=== PATIENT | female | born 1975 | race African-American/Black ===

== ENCOUNTER 2017-05-30 01:43 | Emergency (ER) | payer MEDICAID ==
[~2017-05-30] VITALS: Ht 167.6 cm; Wt 136.0 kg
[~2017-05-30 01:43] MED LIST: ABIL5 PO; AMLO10TA80 PO; CHLO25TA27 PO; GABA-529 PO; METO25TA6 PO; TOPI50TA24 PO; TRAZODONE
[2017-05-30] MEDS ORDERED: AMLODIPINE 10MG TABLET PO ONE (06:15)
[2017-05-30] MEDS ORDERED: FAMOTIDINE 20MG TABLET PO ONE (07:00)
[2017-05-30 07:28] LABS: BASOPHILS % 0.8 % (0.0-2.0); EOSINOPHILS % 1.8 % (0.0-5.0); HEMATOCRIT. 32.9 % (36.0-48.0); HEMOGLOBIN. 10.8 g/dL (12.0-16.0); LYMPHOCYTES % 49.7 % (20.0-50.0); MEAN CORPUSCULAR HEMOGLOBIN 25.2 pg (28.0-32.0); MEAN CORPUSCULAR VOLUME 76.4 fL (81.0-99.0); MEAN PLATELET VOLUME 7.8 fl (7.4-10.4); MONOCYTES % 6.9 % (2.0-8.0); NEUTROPHILS % 40.8 % (40.0-76.0); PLATELET 192 x1000/uL (130-400)
[2017-05-30 07:29] LABS: CLARITY URINE CLOUDY (CLEAR); COLOR URINE YELLOW (YELLOW); KETONES URINE NEGATIVE (NEGATIVE); LEUKOCYTE ESTERASE URINE NEGATIVE (NEGATIVE); NITRITE URINE NEGATIVE (NEGATIVE); OCCULT BLOOD URINE NEGATIVE (NEGATIVE); PH URINE 5.5 (4.5-8.0); PROTEIN URINE TRACE (NEGATIVE); SPECIFIC GRAVITY URINE 1.027 (1.005-1.030); UROBILINOGEN URINE 0.2 E.U./dL (0.2-1.0)
[2017-05-30] MEDS ORDERED: CLONIDINE 0.1MG TABLET PO ONE (07:30)
[2017-05-30 07:36] LABS: PROTHROMBIN TIME 10.4 sec (9.4-11.6)
[2017-05-30 07:41] LABS: CHLORIDE 105 mEq/L (98-107)
[2017-05-30 10:42] VITALS: BP 171/91
== END 2017-05-30 10:45 | disposition home or self-care (01) ==
LOC: ER 01:43
DX: N39.0 Urinary tract infection, site not specified (principal); I10 Essential (primary) hypertension; F17.200 Nicotine dependence, unspecified, uncomplicated
CPT/HCPCS: 36415; 80053; 81003; 81025; 83690; 85025; 85610; 99284; Z7610

== ENCOUNTER 2017-12-05 14:57 | Emergency (ER) | payer MEDICAID ==
[~2017-12-05] VITALS: Ht 172.7 cm; Wt 118.0 kg
[2017-12-05] MEDS ORDERED: SODIUM CHLORIDE 0.9% 1,000 ML IV ONE (15:19)
[2017-12-05] MEDS ORDERED: KETOROLAC 30MG/ML VIAL IV STA (15:19)
[2017-12-05] MEDS ORDERED: ONDANSETRON HCL 4MG/2ML VIAL IV STA (15:19)
[2017-12-05 17:26] LABS: BASOPHILS % 0.6 % (0.0-2.0); EOSINOPHILS % 1.7 % (0.0-5.0); HEMATOCRIT. 33.8 % (36.0-48.0); HEMOGLOBIN. 11.1 g/dL (12.0-16.0); LYMPHOCYTES % 49.7 % (20.0-50.0); MEAN CORPUSCULAR HEMOGLOBIN 25.6 pg (28.0-32.0); MEAN CORPUSCULAR VOLUME 77.8 fL (81.0-99.0); MEAN PLATELET VOLUME 7.9 fl (7.4-10.4); MONOCYTES % 8.5 % (2.0-8.0); NEUTROPHILS % 39.5 % (40.0-76.0); PLATELET 194 x1000/uL (130-400); RED BLOOD CELL COUNT 4.35 mill/uL (4.2-5.4); RED CELL DISTRIBUTION WIDTH 16.6 % (11.6-14.6)
[2017-12-05 17:34] LABS: PROTHROMBIN TIME 9.9 sec (9.1-11.1)
[2017-12-05 17:46] LABS: HCG SCREEN NEGATIVE
[2017-12-05 17:51] LABS: CHLORIDE 111 mEq/L (98-107)
[2017-12-05] MEDS ORDERED: HYDRALAZINE HCL 50MG TABLET PO ONE (18:00)
[2017-12-05] MEDS ORDERED: CLONIDINE 0.2MG TABLET PO ONE (19:45)
[2017-12-05 22:16] LABS: CLARITY URINE CLOUDY (CLEAR); COLOR URINE YELLOW (YELLOW); KETONES URINE NEGATIVE (NEGATIVE); LEUKOCYTE ESTERASE URINE 1+ (NEGATIVE); NITRITE URINE NEGATIVE (NEGATIVE); OCCULT BLOOD URINE NEGATIVE (NEGATIVE); PH URINE 5.5 (4.5-8.0); PROTEIN URINE 1+ (NEGATIVE); SPECIFIC GRAVITY URINE 1.022 (1.005-1.030)
[2017-12-05 22:25] LABS: *AMPHETAMINES SCREEN URINE NEGATIVE (NEGATIVE); *BARBITURATES SCREEN URINE NEGATIVE (NEGATIVE); *BENZODIAZEPINES SCREEN URINE NEGATIVE (NEGATIVE); *COCAINE SCREEN URINE NEGATIVE (NEGATIVE)
[2017-12-05 22:26] LABS: CANNABINOID URINE SCREEN NEGATIVE (NEGATIVE); METHADONE URINE SCREEN NEGATIVE (NEGATIVE); OPIATES URINE SCREEN NEGATIVE (NEGATIVE)
[2017-12-05 22:28] LABS: PHENCYCLIDINE URINE SCREEN PRESUMTIVE POSITIVE (NEGATIVE)
[2017-12-06 00:34] VITALS: BP 158/98
== END 2017-12-06 00:40 | disposition home or self-care (01) ==
LOC: ER 14:57
DX: N30.90 Cystitis, unspecified without hematuria (principal); R11.2 Nausea with vomiting, unspecified; I10 Essential (primary) hypertension; Z79.899 Other long term (current) drug therapy
CPT/HCPCS: 36415; 74176; 80053; 80305; 81003; 83690; 84703; 85025; 85610; 93005; 96361; 96374; 96375; 99285; J1885; J2405; J7030

== ENCOUNTER 2018-06-29 17:45 | Emergency (ER) | payer MEDICAID ==
[~2018-06-29] VITALS: Ht 165.1 cm; Wt 97.0 kg
[2018-06-29 17:49] VITALS: BP 200/120
== END 2018-06-29 20:00 | disposition left against medical advice (07) ==
LOC: ER 17:45
DX: Z53.21 Procedure and treatment not carried out due to patient leaving prior to being seen by health care provider (principal)

== ENCOUNTER 2018-06-29 21:36 | Emergency (ER) | payer MEDICAID ==
[~2018-06-29] VITALS: Ht 167.6 cm; Wt 100.0 kg
[2018-06-30 02:15] VITALS: BP 186/94
== END 2018-06-30 02:28 | disposition home or self-care (01) ==
LOC: ER 21:36
DX: T74.21XA Adult sexual abuse, confirmed, initial encounter (principal); I10 Essential (primary) hypertension; Z88.8 Allergy status to other drugs, medicaments and biological substances
CPT/HCPCS: 99283

== ENCOUNTER 2021-02-14 12:05 | Inpatient (IN) | payer MEDICAID ==
[~2021-02-14] VITALS: Ht 172.7 cm; Wt 136.1 kg
[2021-02-14] MEDS ORDERED: SODIUM CHLORIDE 0.9% 1,000 ML IV ONE (12:15)
[2021-02-14 12:53] LABS: HEMATOCRIT. 35.3 % (36.0-48.0); HEMOGLOBIN. 11.2 g/dL (12.0-16.0); MEAN CORPUSCULAR VOLUME 78.8 fL (81.0-99.0); RED BLOOD CELL COUNT 4.49 mill/uL (4.2-5.4)
[2021-02-14 12:58] LABS: CHLORIDE 107 mEq/L (98-107)
[2021-02-14 13:08] LABS: LDL CHOLESTEROL 61 mg/dL (5-100)
[2021-02-14 13:09] LABS: ETHANOL BLOOD < 10 mg/dL
[2021-02-14 13:12] LABS: HCG SCREEN NEGATIVE
[2021-02-14 13:26] LABS: PLATELET 232 x1000/uL (130-400)
[2021-02-14 13:30] LABS: NUCLEATED RED BLOOD CELLS 1 /100 WBC; PLATELET ESTIMATE NORMAL
[2021-02-14] MEDS ORDERED: ASPIRIN 81MG TABLET PO ONE (13:30)
[2021-02-14] MEDS ORDERED: CLOPIDOGREL 75MG TABLET PO ONE (13:30)
[2021-02-14 13:38] LABS: PROTHROMBIN TIME 10.8 sec (9.6-11.0)
[2021-02-14] MEDS ORDERED: DIPHENHYDRAMINE 50MG/ML VIAL IV PRN (15:00)
[2021-02-14] MEDS ORDERED: CLONIDINE 0.1MG TABLET PO PRN (15:00)
[2021-02-14] MEDS ORDERED: IPRATROPIUM/ALBUTEROL 0.5-3(2.5)MG/3ML NEB HHN PRN (15:00)
[2021-02-14] MEDS ORDERED: ACETAMINOPHEN 325MG TABLET PO PRN (15:00)
[2021-02-14 16:00] VITALS: BP 179/88
[2021-02-14] MEDS: AMLODIPINE 10MG TABLET PO SCH (16:30)
[2021-02-14] MEDS: GABAPENTIN 100MG CAPSULE PO SCH (17:00)
[2021-02-14 17:17] VITALS: BP 179/88
[2021-02-14] MEDS: HYDRALAZINE 20MG/ML VIAL IV SCH (19:40)
[2021-02-14 19:47] LABS: T4 FREE 0.82 ng/dL (0.76-1.46)
[2021-02-14 20:00] VITALS: BP 150/71
[2021-02-14 20:03] LABS: FOLIC ACID (FOLATE) SERUM 19.7 ng/mL (>5.38)
[2021-02-14] MEDS ORDERED: IOHEXOL-350 100 ML BOTTLE ONE (20:20)
[2021-02-14] MEDS ORDERED: TRAZODONE HCL 50MG TABLET PO SCH (21:00)
[2021-02-14] MEDS: TOPIRAMATE 100MG TABLET PO SCH (21:00)
[2021-02-14] MEDS: METOPROLOL TARTRATE 25MG TABLET PO SCH (21:00)
[2021-02-14] MEDS: TRAZODONE HCL 50MG TABLET PO SCH (21:00)
[2021-02-14 23:23] LABS: CLARITY URINE CLEAR (CLEAR); COLOR URINE YELLOW (YELLOW); KETONES URINE NEGATIVE (NEGATIVE); LEUKOCYTE ESTERASE URINE 1+ (NEGATIVE); NITRITE URINE NEGATIVE (NEGATIVE); OCCULT BLOOD URINE NEGATIVE (NEGATIVE); PH URINE 6.5 (4.5-8.0); PROTEIN URINE NEGATIVE (NEGATIVE); SPECIFIC GRAVITY URINE 1.025 (1.005-1.030); UROBILINOGEN URINE 0.2 E.U./dL (0.2-1.0)
[2021-02-14 23:38] LABS: *AMPHETAMINES SCREEN URINE NEGATIVE (NEGATIVE); *BARBITURATES SCREEN URINE NEGATIVE (NEGATIVE); *BENZODIAZEPINES SCREEN URINE NEGATIVE (NEGATIVE); *COCAINE SCREEN URINE NEGATIVE (NEGATIVE); CANNABINOID URINE SCREEN NEGATIVE (NEGATIVE); METHADONE URINE SCREEN NEGATIVE (NEGATIVE); OPIATES URINE SCREEN NEGATIVE (NEGATIVE); PHENCYCLIDINE URINE SCREEN NEGATIVE (NEGATIVE)
[2021-02-15] VITALS: BP 106/71
[2021-02-15] MEDS: HEPARIN 100 UNITS/1 ML VIAL IVF SCH ×5 (00:37→21:29)
[2021-02-15 04:00] VITALS: BP 116/67
[2021-02-15] MEDS: HYDRALAZINE 20MG/ML VIAL IV SCH ×5 (05:34→23:39)
[2021-02-15 08:00] VITALS: BP 137/68
[2021-02-15] MEDS: ARIPIPRAZOLE 5MG TABLET PO SCH (09:00)
[2021-02-15] MEDS ORDERED: ACETAMINOPHEN 325MG TABLET PO PRN (10:30)
[2021-02-15 12:00] VITALS: BP 140/86
[2021-02-15] MEDS ORDERED: SODIUM CHLORIDE 0.9% 1,000 ML IV SCH (12:00)
[2021-02-15 16:00] VITALS: BP 164/93
[2021-02-15] MEDS: TOPIRAMATE 100MG TABLET PO SCH ×2 (16:39→21:27)
[2021-02-15] MEDS: GABAPENTIN 100MG CAPSULE PO SCH ×3 (16:39→18:25)
[2021-02-15] MEDS: METOPROLOL TARTRATE 25MG TABLET PO SCH ×2 (16:39→21:29)
[2021-02-15] MEDS: LORAZEPAM 0.5MG TABLET PO PRN ×2 (16:40→23:39)
[2021-02-15] MEDS: CHLORTHALIDONE 25MG TABLET PO SCH (16:40)
[2021-02-15] MEDS: CLOPIDOGREL 75MG TABLET PO SCH (16:40)
[2021-02-15] MEDS: AMLODIPINE 10MG TABLET PO SCH (16:40)
[2021-02-15] MEDS ORDERED: ONDANSETRON HCL 4MG/2ML INJ IV PRN ×3 (18:00→23:15)
[2021-02-15 20:00] VITALS: BP 161/87
[2021-02-15] MEDS: TRAZODONE HCL 50MG TABLET PO SCH (21:29)
[2021-02-15] MEDS ORDERED: METOCLOPRAMIDE HCL 10MG/2ML VIAL IV PRN (23:00)
[2021-02-15] MEDS ORDERED: NALOXONE HCL 0.4 MG/ML 1ML VIAL IV PRN (23:15)
[2021-02-16] VITALS: BP 163/96
[2021-02-16 04:19] VITALS: BP 152/81
[2021-02-16] MEDS: HEPARIN 100 UNITS/1 ML VIAL IVF SCH (05:41)
[2021-02-16] MEDS: HYDRALAZINE 20MG/ML VIAL IV SCH ×3 (05:41→17:34)
[2021-02-16 07:39] LABS: BASOPHILS % 0.2 % (0.0-2.0); EOSINOPHILS % 0.4 % (0.0-5.0); HEMATOCRIT. 35.7 % (36.0-48.0); HEMOGLOBIN. 11.6 g/dL (12.0-16.0); LYMPHOCYTES % 27.6 % (20.0-50.0); MEAN CORPUSCULAR HEMOGLOBIN 25.1 pg (28.0-32.0); MEAN CORPUSCULAR VOLUME 77.5 fL (81.0-99.0); MEAN PLATELET VOLUME 7.9 fl (7.4-10.4); MONOCYTES % 8.2 % (2.0-8.0); NEUTROPHILS % 63.6 % (40.0-76.0); PLATELET 250 x1000/uL (130-400); RED BLOOD CELL COUNT 4.61 mill/uL (4.2-5.4); RED CELL DISTRIBUTION WIDTH 21.5 % (11.6-14.6)
[2021-02-16 08:00] VITALS: BP 150/74
[2021-02-16 08:01] LABS: CHLORIDE 108 mEq/L (98-107)
[2021-02-16] MEDS: AMLODIPINE 10MG TABLET PO SCH (10:13)
[2021-02-16] MEDS: METOPROLOL TARTRATE 25MG TABLET PO SCH ×2 (10:13→20:59)
[2021-02-16] MEDS: CHLORTHALIDONE 25MG TABLET PO SCH (10:14)
[2021-02-16] MEDS: TOPIRAMATE 100MG TABLET PO SCH ×2 (10:21→20:59)
[2021-02-16] MEDS: CLOPIDOGREL 75MG TABLET PO SCH (10:21)
[2021-02-16] MEDS: GABAPENTIN 100MG CAPSULE PO SCH ×3 (10:21→17:33)
[2021-02-16] MEDS ORDERED: POTASSIUM CHLORIDE 20MEQ TABLET SR PO NR (11:15)
[2021-02-16 12:00] VITALS: BP 124/94
[2021-02-16] MEDS: LORAZEPAM 0.5MG TABLET PO PRN ×2 (12:16→18:21)
[2021-02-16] MEDS: ARIPIPRAZOLE 5MG TABLET PO SCH (12:17)
[2021-02-16 16:00] VITALS: BP 123/73
[2021-02-16] MEDS: LEVOTHYROXINE SODIUM 75MCG TABLET PO SCH (17:33)
[2021-02-16 20:00] VITALS: BP 133/73
[2021-02-16] MEDS: TRAZODONE HCL 50MG TABLET PO SCH (20:59)
[2021-02-17] VITALS: BP 107/62
[2021-02-17 04:00] VITALS: BP 103/55
[2021-02-17] MEDS: HYDRALAZINE 20MG/ML VIAL IV SCH ×5 (06:00→17:28)
[2021-02-17] MEDS: LEVOTHYROXINE SODIUM 75MCG TABLET PO SCH (06:12)
[2021-02-17 08:00] VITALS: BP 96/58
[2021-02-17] MEDS: CHLORTHALIDONE 25MG TABLET PO SCH (09:00)
[2021-02-17] MEDS: TOPIRAMATE 100MG TABLET PO SCH ×3 (09:00→21:21)
[2021-02-17] MEDS: GABAPENTIN 100MG CAPSULE PO SCH ×6 (09:00→17:34)
[2021-02-17] MEDS: ARIPIPRAZOLE 5MG TABLET PO SCH ×2 (09:00→09:34)
[2021-02-17] MEDS: METOPROLOL TARTRATE 25MG TABLET PO SCH ×2 (09:00→21:22)
[2021-02-17] MEDS: CLOPIDOGREL 75MG TABLET PO SCH ×2 (09:00→09:34)
[2021-02-17] MEDS: AMLODIPINE 10MG TABLET PO SCH (09:00)
[2021-02-17 12:00] VITALS: BP 123/70
[2021-02-17 16:00] VITALS: BP 137/69
[2021-02-17] MEDS: POLYETHYLENE GLYCOL 3350 (17GM) 1 DOSE PACK PO SCH (19:45)
[2021-02-17 20:00] VITALS: BP 157/68
[2021-02-17] MEDS: TRAZODONE HCL 50MG TABLET PO SCH (21:20)
[2021-02-17] MEDS: ATORVASTATIN CALCIUM 40MG TABLET PO SCH (21:20)
[2021-02-18] VITALS: BP 111/72
[2021-02-18 04:00] VITALS: BP 133/66
[2021-02-18] MEDS: HYDRALAZINE 20MG/ML VIAL IV SCH ×4 (06:00→17:07)
[2021-02-18] MEDS: LEVOTHYROXINE SODIUM 75MCG TABLET PO SCH (06:22)
[2021-02-18 08:00] VITALS: BP 118/79
[2021-02-18] MEDS: METOPROLOL TARTRATE 25MG TABLET PO SCH ×2 (08:47→20:34)
[2021-02-18] MEDS: ARIPIPRAZOLE 5MG TABLET PO SCH (08:47)
[2021-02-18] MEDS: CHLORTHALIDONE 25MG TABLET PO SCH (08:47)
[2021-02-18] MEDS: POLYETHYLENE GLYCOL 3350 (17GM) 1 DOSE PACK PO SCH (08:47)
[2021-02-18] MEDS: GABAPENTIN 100MG CAPSULE PO SCH ×3 (08:48→16:28)
[2021-02-18] MEDS: AMLODIPINE 10MG TABLET PO SCH (08:48)
[2021-02-18] MEDS: CLOPIDOGREL 75MG TABLET PO SCH (08:48)
[2021-02-18] MEDS: TOPIRAMATE 100MG TABLET PO SCH ×2 (08:48→20:33)
[2021-02-18] MEDS ORDERED: FENTANYL CITRATE/PF 50MCG/ML 5ML VIAL ONE (10:52)
[2021-02-18] MEDS ORDERED: MIDAZOLAM HCL 2 MG/2 ML VIAL ONE ×2 (10:52→11:34)
[2021-02-18] MEDS ORDERED: FENTANYL CITRATE/PF 50MCG/ML 2ML VIAL ONE (10:52)
[2021-02-18] MEDS ORDERED: LIDOCAINE HCL 2% JELLY 5ML ONE (10:53)
[2021-02-18] MEDS ORDERED: MIDAZOLAM HCL 5 MG/5 ML VIAL ONE (10:53)
[2021-02-18] MEDS ORDERED: TETRACAINE/BENZOCAINE/BUTAMBEN 20 GM SPRAY MM ONE (10:53)
[2021-02-18 12:00] VITALS: BP 128/78
[2021-02-18 13:11] LABS: ANTI-CARDIOLIPIN AB IGA < 9 APL U/mL (0-11); ANTI-CARDIOLIPIN AB IGG < 9 GPL U/mL (0-14); ANTI-CARDIOLIPIN AB IGM < 9 MPL U/mL (0-12); ANTI-THROMBIN ACTIVITY 105 % (75-135); PROTEIN C FUNCTIONAL 108 % (73-180)
[2021-02-18] MEDS: LORAZEPAM 0.5MG TABLET PO PRN ×2 (14:31→23:45)
[2021-02-18] MEDS ORDERED: APIX5TAB PO (14:47)
[2021-02-18] MEDS ORDERED: LEVO75TA7 PO (14:47)
[2021-02-18] MEDS ORDERED: ASPI-1406 MT (14:47)
[2021-02-18] MEDS ORDERED: APIX5TAB MT (14:47)
[2021-02-18] MEDS ORDERED: LIP40 PO (14:47)
[2021-02-18 16:00] VITALS: BP 136/79
[2021-02-18] MEDS: APIXABAN 5 MG TABLET PO SCH (16:28)
[2021-02-18] MEDS: ASPIRIN 81MG TABLET PO SCH (16:28)
[2021-02-18 20:00] VITALS: BP 115/67
[2021-02-18] MEDS: ATORVASTATIN CALCIUM 40MG TABLET PO SCH (20:33)
[2021-02-18] MEDS: TRAZODONE HCL 50MG TABLET PO SCH (20:34)
[2021-02-19] VITALS (7 sets, daily range): BP systolic 116–136; BP diastolic 56–82
[2021-02-19] MEDS: HYDRALAZINE 20MG/ML VIAL IV SCH ×5 (01:08→23:38)
[2021-02-19] MEDS: LEVOTHYROXINE SODIUM 75MCG TABLET PO SCH (05:39)
[2021-02-19] MEDS: POLYETHYLENE GLYCOL 3350 (17GM) 1 DOSE PACK PO SCH (09:00)
[2021-02-19] MEDS: ARIPIPRAZOLE 5MG TABLET PO SCH (09:40)
[2021-02-19] MEDS: METOPROLOL TARTRATE 25MG TABLET PO SCH ×2 (09:40→21:16)
[2021-02-19] MEDS: CHLORTHALIDONE 25MG TABLET PO SCH (09:40)
[2021-02-19] MEDS: GABAPENTIN 100MG CAPSULE PO SCH ×3 (09:40→17:00)
[2021-02-19] MEDS: TOPIRAMATE 100MG TABLET PO SCH ×2 (09:40→21:15)
[2021-02-19] MEDS: APIXABAN 5 MG TABLET PO SCH ×2 (09:40→17:00)
[2021-02-19] MEDS: ASPIRIN 81MG TABLET PO SCH (09:41)
[2021-02-19] MEDS: AMLODIPINE 10MG TABLET PO SCH (09:41)
[2021-02-19] MEDS ORDERED: HYDROCODONE/ACETAMINOPHEN 5/325MG TABLET ONE (10:55)
[2021-02-19 16:15] LABS: BASOPHILS % 0.2 % (0.0-2.0); EOSINOPHILS % 0.4 % (0.0-5.0); HEMATOCRIT. 35.4 % (36.0-48.0); HEMOGLOBIN. 11.5 g/dL (12.0-16.0); LYMPHOCYTES % 20.6 % (20.0-50.0); MEAN CORPUSCULAR HEMOGLOBIN 25.1 pg (28.0-32.0); MEAN CORPUSCULAR VOLUME 76.9 fL (81.0-99.0); MEAN PLATELET VOLUME 8.1 fl (7.4-10.4); MONOCYTES % 14.5 % (2.0-8.0); NEUTROPHILS % 64.3 % (40.0-76.0); PLATELET 232 x1000/uL (130-400); RED CELL DISTRIBUTION WIDTH 21.8 % (11.6-14.6)
[2021-02-19 18:39] LABS: CHLORIDE 104 mEq/L (98-107)
[2021-02-19] MEDS: ATORVASTATIN CALCIUM 40MG TABLET PO SCH (21:15)
[2021-02-19] MEDS: HYDROCODONE/ACETAMINOPHEN 5/325MG TABLET PO PRN (21:17)
[2021-02-19] MEDS: TRAZODONE HCL 50MG TABLET PO SCH (21:17)
[2021-02-19] MEDS ORDERED: POTASSIUM CHLORIDE 20MEQ TABLET SR PO NR (22:15)
[2021-02-20 04:57] VITALS: BP 143/83
[2021-02-20] MEDS: HYDRALAZINE 20MG/ML VIAL IV SCH ×2 (05:37→12:00)
[2021-02-20] MEDS: LEVOTHYROXINE SODIUM 75MCG TABLET PO SCH (05:38)
[2021-02-20] MEDS: HYDROCODONE/ACETAMINOPHEN 5/325MG TABLET PO PRN (06:45)
[2021-02-20 08:00] VITALS: BP 116/66
[2021-02-20] MEDS: ARIPIPRAZOLE 5MG TABLET PO SCH (09:04)
[2021-02-20] MEDS: CHLORTHALIDONE 25MG TABLET PO SCH (09:05)
[2021-02-20] MEDS: ASPIRIN 81MG TABLET PO SCH (09:05)
[2021-02-20] MEDS: AMLODIPINE 10MG TABLET PO SCH (09:05)
[2021-02-20] MEDS: TOPIRAMATE 100MG TABLET PO SCH (09:05)
[2021-02-20] MEDS: GABAPENTIN 100MG CAPSULE PO SCH (09:05)
[2021-02-20] MEDS: POLYETHYLENE GLYCOL 3350 (17GM) 1 DOSE PACK PO SCH (09:05)
[2021-02-20] MEDS: APIXABAN 5 MG TABLET PO SCH (09:05)
[2021-02-20] MEDS: METOPROLOL TARTRATE 25MG TABLET PO SCH (09:05)
[2021-02-20 10:32] VITALS: BP 112/67
[2021-02-20 12:00] VITALS: BP 112/67
== END 2021-02-20 14:20 | DRG 45 ==
LOC: ER 12:05 → 7EST 13:20 → EDBEDREQTM 13:21 → EDBEDREQ 13:21 → ENRESERV 14:32 → ER 15:59
PROVIDERS: ADMIT Internal Medicine; ATTEND Internal Medicine
PROC: 02HV33Z Insertion of Infusion Device into Superior Vena Cava, Percutaneous Approach (ICD-10-PCS; principal; 2021-02-14)
PROC: B548ZZA Ultrasonography of Superior Vena Cava, Guidance (ICD-10-PCS; 2021-02-14)
PROC: 4A10X4Z Monitoring of Central Nervous Electrical Activity, External Approach (ICD-10-PCS; 2021-02-17)
DX: I63.9 Cerebral infarction, unspecified (principal); G93.40 Encephalopathy, unspecified; I50.43 Acute on chronic combined systolic (congestive) and diastolic (congestive) heart failure; E44.0 Moderate protein-calorie malnutrition; I51.3 Intracardiac thrombosis, not elsewhere classified; I69.354 Hemiplegia and hemiparesis following cerebral infarction affecting left non-dominant side; I42.2 Other hypertrophic cardiomyopathy; I11.0 Hypertensive heart disease with heart failure; E78.00 Pure hypercholesterolemia, unspecified; I16.0 Hypertensive urgency; I45.10 Unspecified right bundle-branch block; R29.711 NIHSS score 11; E66.01 Morbid (severe) obesity due to excess calories; H54.7 Unspecified visual loss; D64.9 Anemia, unspecified; F32.A Depression, unspecified; F41.9 Anxiety disorder, unspecified; R53.81 Other malaise; R79.89 Other specified abnormal findings of blood chemistry; Z20.822 Contact with and (suspected) exposure to COVID-19; R13.10 Dysphagia, unspecified; E03.9 Hypothyroidism, unspecified; R47.01 Aphasia; E78.5 Hyperlipidemia, unspecified; R47.1 Dysarthria and anarthria; T43.506A Underdosing of unspecified antipsychotics and neuroleptics, initial encounter; Y92.89 Other specified places as the place of occurrence of the external cause; I25.2 Old myocardial infarction; Z68.42 Body mass index [BMI] 45.0-49.9, adult; Z88.8 Allergy status to other drugs, medicaments and biological substances; Z79.899 Other long term (current) drug therapy
CPT/HCPCS: 36415; 70496; 70498; 70551; 71045; 76937; 80048; 80053; 80061; 80305; 80320; 81003; 81400; 81403; 81407; 81479; 82607; 82746; 82962; 83036; 83721; 84439; 84443; 84481; 84484; 84703; 85025; 85300; 85303; 85306; 86147; 87426; 92610; 93005; 93306; 93312; 97162; 97166; 99291; C1725; J0360; J1200; J1642; J2250; J2405; J2765; J3010; J7030; Q9967; G0480